=== PATIENT | male | born 1990 | race Hispanic/Latino ===

== ENCOUNTER 2017-07-13 | Emergency (ER) | payer SELFPAY ==
--- NOTE | 2017-07-13 16:18 | EDPHYS ---
Physician Documentation [facility] Name: De Richardson Age: 27 yrs Sex: Male : 1990 Arrival Date: 07/13/2017 Time: 13:33 Bed 11 Private MD: None, None ED Physician Juan Chester HPI: 07/13 16:14 This 27 yrs old Male presents to ER via Ambulatory with complaints of Fever. snw 16:14 The patient reports fever, not measured (subjective). Onset: The symptoms/episode snw began/occurred suddenly, 3 day(s) ago, and improved needs work excuse. Modifying factors: there are no obvious modifying factors. Associated signs and symptoms: Pertinent positives: cough, nausea. Severity of symptoms: At their worst the symptoms were moderate. It is unknown whether or not the patient has had similar symptoms in the past. The patient has not recently seen a physician. needs PCP for eval of HTN. Historical: - Allergies: 13:45 No Known Allergies; hj - Home Meds: 13:45 None [Active]; hj - PMHx: 13:45 None; hj - PSHx: 13:45 None; hj - Immunization history:: Adult Immunizations up to date. - Social history:: Smoking status: Patient/guardian denies using tobacco. ROS: 16:13 Constitutional: Negative for fever, chills, and weight loss, Eyes: Negative for injury, snw pain, redness, and discharge, ENT: Negative for injury, pain, and discharge, Neck: Negative for injury, pain, and swelling, Cardiovascular: Negative for chest pain, palpitations, and edema, Respiratory: Negative for shortness of breath, wheezing, and pleuritic chest pain, + cough Abdomen/GI: Negative for abdominal pain, nausea, vomiting, diarrhea, and constipation, Back: Negative for injury and pain, : Negative for injury, bleeding, discharge, and swelling, MS/Extremity: Negative for injury and deformity, Skin: Negative for injury, rash, and discoloration, Neuro: Negative for weakness, numbness, tingling, and seizure, + headache Exam: 16:13 Constitutional: This is a well developed, well nourished patient who is awake, alert, snw and in no acute distress. Head/Face: Normocephalic, atraumatic. Eyes: Pupils equal round and reactive to light, extra-ocular motions intact. Lids and lashes normal. Conjunctiva and sclera are non-icteric and not injected. Cornea within normal limits. Periorbital areas with no swelling, redness, or edema. ENT: Nares patent. No nasal discharge, no septal abnormalities noted. Tympanic membranes are normal and external auditory canals are clear. Oropharynx with no redness, swelling, or masses, exudates, or evidence of obstruction, uvula midline. Mucous membranes moist. Neck: Trachea midline, no thyromegaly or masses palpated, and no cervical lymphadenopathy. Supple, full range of motion without nuchal rigidity, or vertebral point tenderness. No Meningismus. Chest/axilla: Normal chest wall appearance and motion. Nontender with no deformity. No lesions are appreciated. Cardiovascular: Regular rate and rhythm with a normal S1 and S2. No gallops, murmurs, or rubs. Normal PMI, no JVD. No pulse deficits. Respiratory: Lungs have equal breath sounds bilaterally, clear to auscultation and percussion. No rales, rhonchi or wheezes noted. No increased work of breathing, no retractions or nasal flaring. Abdomen/GI: Soft, non-tender, with normal bowel sounds. No distension or tympany. No guarding or rebound. No evidence of tenderness throughout. Back: No spinal tenderness. No costovertebral tenderness. Full range of motion. Skin: Warm, dry with normal turgor. Normal color with no rashes, no lesions, and no evidence of cellulitis. MS/ Extremity: Pulses equal, no cyanosis. Neurovascular intact. Full, normal range of motion. Neuro: Awake and alert, GCS 15, oriented to person, place, time, and situation. Cranial nerves II-XII grossly intact. Motor strength 5/5 in all extremities. Sensory grossly intact. Cerebellar exam normal. Normal gait. Vital Signs: 13:45 BP 140 / 90; Pulse 105; Resp 18; Temp 98.8(TE); Pulse Ox 97% on R/A; Weight 70.31 kg; hj Height 5 ft. 10 in. (177.80 cm); 13:45 Body Mass Index 22.24 (70.31 kg, 177.80 cm) MDM: 15:45 Patient medically screened. snw 16:18 Data reviewed: vital signs, nurses notes. Data interpreted: Pulse oximetry: on room air snw is 97 %. Interpretation: normal. Counseling: I had a detailed discussion with the patient and/or guardian regarding: the historical points, exam findings, and any diagnostic results supporting the discharge/admit diagnosis, the presence of at least one elevated blood pressure reading (>120/80) during this emergency department visit, the need for outpatient follow up, to return to the emergency department if symptoms worsen or persist or if there are any questions or concerns that arise at home. Special discussion: I have referred the patient to see his PCP for further evaluation of high blood pressure. Based on the history and exam findings, there is no indication for further emergent testing or inpatient evaluation. I discussed with the patient/guardian the need to see the primary care provider for further evaluation of the symptoms. Administered Medications: No medications were administered Disposition: 07/13/17 16:17 Discharged to Home. Impression: Essential (primary) hypertension, Acute upper respiratory infection, unspecified. - Condition is Stable. - Discharge Instructions: Hay Fever, Hypertension, Upper Respiratory Infection, Adult, DASH Eating Plan, Managing Your High Blood Pressure. - Work release form, Medication Reconciliation Form, Thank You Letter, Antibiotic Education, Prescription Opioid Use form. - Follow up: Private Physician; When: 2 - 3 days; Reason: Recheck today's complaints, Continuance of care, Re-evaluation by your physician. Follow up: Emergency Department; When: As needed; Reason: Worsening of condition. Addendum: 07/16/2017 06:15 Co-signature as Attending Physician, Juan Chester MD Available for consultation at p s1 all times. . Signatures: Kamran Trivedi, RN RN Ivanna Cano, POULTRY FIELD SERVICE TECHNICIAN-C POULTRY FIELD SERVICE TECHNICIAN-Csnw Bety Sanford, RN MACRINA iw Randall Ahn RN Juan Carter MD MD ps1
--- NOTE | 2017-07-13 16:18 | ER ---
Nurse's Notes [facility] Name: De Richardson Age: 27 yrs Sex: Male : 1990 Arrival Date: 07/13/2017 Time: 13:33 Bed 11 Private MD: None, None Diagnosis: Essential (primary) hypertension;Acute upper respiratory infection, unspecified Presentation: 07/13 13:43 Presenting complaint: Patient states: past 3 days, i had fever, headache, need blood hj work done because el been sick lately;. Transition of care: patient was not received from another setting of care. Onset of symptoms was July 13, 2017. Care prior to arrival: None. 13:43 Method Of Arrival: Ambulatory 13:43 Acuity: RACHID 4 hj 16:21 Initial Sepsis Screen: Does the patient meet any 2 criteria? No. Patient's initial hj sepsis screen is negative. Does the patient have a suspected source of infection? No. Patient's initial sepsis screen is negative. Triage Assessment: 13:45 General: Appears in no apparent distress. uncomfortable, Behavior is calm, cooperative, hj appropriate for age. Pain: Complains of pain in throat. Historical: - Allergies: 13:45 No Known Allergies; hj - Home Meds: 13:45 None [Active]; hj - PMHx: 13:45 None; hj - PSHx: 13:45 None; hj - Immunization history:: Adult Immunizations up to date. - Social history:: Smoking status: Patient/guardian denies using tobacco. Screenin:49 Abuse screen: Denies threats or abuse. Denies injuries from another. Nutritional iw screening: No deficits noted. Tuberculosis screening: No symptoms or risk factors identified. Fall Risk None identified. Assessment: 15:49 General: Appears in no apparent distress. Behavior is calm, cooperative. General: iw Reports fever for feeling ill for. Neuro: Level of Consciousness is awake, alert, obeys commands, Oriented to person, place, time, situation, Moves all extremities. Full function. Cardiovascular: Capillary refill < 3 seconds in bilateral fingers Patient's skin is warm and dry. Respiratory: Respiratory effort is even, unlabored, Respiratory pattern is regular. Derm: Skin is pink, warm \T\ dry. normal. Musculoskeletal: Range of motion: intact in all extremities. Vital Signs: 13:45 BP 140 / 90; Pulse 105; Resp 18; Temp 98.8(TE); Pulse Ox 97% on R/A; Weight 70.31 kg; hj Height 5 ft. 10 in. (177.80 cm); 13:45 Body Mass Index 22.24 (70.31 kg, 177.80 cm) hj ED Course: 13:33 Patient arrived in ED. mr 13:34 None, None is Private Physician. mr 13:45 Triage completed. hj 13:45 Arm band placed on left wrist. hj 14:22 Ivanna Conley FNP-C is [facility]. snw 14:22 Juan Chester MD is Attending Physician. snw 15:49 Bety Sanford, RN is Primary Nurse. iw 15:50 Patient has correct armband on for positive identification. iw 15:50 No provider procedures requiring assistance completed. Patient did not have IV access iw during this emergency room visit. Administered Medications: No medications were administered Outcome: 16:17 Discharge ordered by MD. snw 16:40 Discharged to home ambulatory. iw 16:40 Condition: good 16:40 Discharge instructions given to patient, Instructed on discharge instructions, follow up and referral plans. Demonstrated understanding of instructions, follow-up care. 16:43 Patient left the ED. sg Signatures: Kamran Trivedi RN RN Ivanna Conley FNP-C FNP-Kelsey Miller mr Bety Sanford, RN MACRINA Randall Ahn RN RN Corrections: (The following items were deleted from the chart) 13:47 13:45 Pulse 105bpm; Resp 18bpm; Pulse Ox 97% RA; Temp 98.8F Temporal; 70.31 kg; Height hj 5 ft. 10 in.; BMI: 22.2; hj
== END 2017-07-13 16:43 | disposition home or self-care (01) ==
CPT/HCPCS: 99281